=== PATIENT | male | born 1990 | race Caucasian/White ===

== ENCOUNTER 2016-08-05 21:05 | Emergency (ER) | payer SELFPAY ==
[~2016-08-05 21:05] MED LIST: GOODY'S EX-STR1 EAC1 PO; LOPID6 PO; PCET PO
== END 2016-08-05 21:10 | disposition home or self-care (01) ==
LOC: ER 21:05
DX: K02.9 Dental caries, unspecified (principal); F17.200 Nicotine dependence, unspecified, uncomplicated; Z88.5 Allergy status to narcotic agent; Z79.82 Long term (current) use of aspirin; Z79.899 Other long term (current) drug therapy
CPT/HCPCS: 99282; A9270-GY